=== PATIENT | male | born 1975 | race Two or more races ===

== ENCOUNTER 2022-06-06 18:12 | Emergency (ER) | payer SELFPAY ==
[~2022-06-06] VITALS: Ht 175.3 cm; Wt 70.8 kg
--- NOTE | 2022-06-06 18:18 | NUR ---
[address], FOUND UNRESPONSIVE. WAS GIVEN NARCAN 2MG SECURITY INCIDENT HANDLER. BG 306 ALSO WAS GIVEN ZOFRAN 4MG IVP SECURITY INCIDENT HANDLER. PLACED ON BED, AWAKE RESPONDING TO VERBAL STIMULI, BREATHING EVEN AND UNLABORED SATURATING AT 94%.
--- NOTE | 2022-06-06 18:20 | NUR ---
AT BED SIDE FOR EVAL.
[2022-06-06] MEDS ORDERED: IV NS 0.9% 1,000 ML BAG IV ONE (18:30)
[2022-06-06] MEDS ORDERED: ONDANSETRON HCL/PF 4 MG/2 ML VIAL IVP ONE (18:30)
[2022-06-06] MEDS ORDERED: ONDANSETRON HCL/PF 4 MG/2 ML VIAL ONE (18:34)
--- NOTE | 2022-06-06 18:35 | NUR ---
CELL TUBER MACHINE AT BED SIDE
--- NOTE | 2022-06-06 19:05 | NUR ---
URINE SAMPLE SENT TO LAB
[2022-06-06 20:19] LABS: BASOPHILS % (AUTO) 0.5 % (0.0-2.0); EOSINOPHILS % (AUTO) 0.7 % (0.0-6.0); HEMATOCRIT 41 % (39-51); HEMOGLOBIN 13.5 g/dL (13.5-17.5); LYMPHOCYTES # (AUTO) 1.4 K/uL (0.8-4.8); LYMPHOCYTES % (AUTO) 34.5 % (20.0-44.0); MEAN CORPUSCULAR HGB CONC 33 g/dl (31.0-36.0); MEAN CORPUSCULAR VOLUME 94 fL (80-96); MONOCYTES # (AUTO) 0.2 K/uL (0.1-1.30); NEUTROPHILS # (AUTO) 2.5 K/uL (1.8-8.9); NEUTROPHILS % (AUTO) 60.3 % (43.0-81.0); PLATELET COUNT (AUTO) 310 K/uL (150-450); RED BLOOD CELL COUNT(AUTO) 4.31 MIL/uL (4.5-6.0); WHITE BLOOD COUNT (AUTO) 4.1 K/uL (4.3-11.0)
[2022-06-06 20:38] LABS: CALCIUM, SERUM 8.2 mg/dL (8.5-10.1); CARBON DIOXIDE 20 mmol/L (21-32); CHLORIDE 107 mmol/L (98-107); CREATININE 0.9 mg/dL (0.6-1.3); GLUCOSE 183 mg/dL (74-106); POTASSIUM 3.1 mmol/L (3.5-5.1); SODIUM SERUM 145 mmol/L (136-145); UREA NITROGEN, BLOOD 8 mg/dL (7-18)
[2022-06-06 20:43] LABS: ALANINE AMINOTRANSFERASE 40 U/L (12-78); ALBUMIN 3.6 g/dL (3.4-5.0); ALCOHOL, BLOOD 235 mg/dL (0-0); ALKALINE PHOSPHATASE 80 U/L (46-116); ASPARTATE AMINOTRANSFERASE 17 U/L (15-37); BILIRUBIN,DIRECT 0.1 mg/dL (0.0-0.2); BILIRUBIN,TOTAL 0.3 mg/dL (0.2-1.0)
[2022-06-06 20:55] LABS: ACETAMINOPHEN < 2 ug/ml (10-30)
--- NOTE | 2022-06-06 23:43 | NUR ---
Patient discharged to home in stable condition. Written and verbal after care instructions given. Patient verbalizes understanding of instruction.
[2022-06-06 23:44] VITALS: BP 112/78
== END 2022-06-06 23:44 | disposition home or self-care (01) ==
LOC: ER 18:18 → EDBD 18:18 → ER 23:44
DX: F10.10 Alcohol abuse, uncomplicated (principal); R40.0 Somnolence; Y90.8 Blood alcohol level of 240 mg/100 ml or more
CPT/HCPCS: 99283; 96374; 96361; 85025; 80048; 80076; 36415; 80143; 80320; 80307; J2405; J7030; G0480